=== PATIENT | female | born 1955 | race Caucasian/White ===

== ENCOUNTER 2020-06-05 08:17 | Day surgery (SDC) | payer OTHER ==
[2020-06-02 10:31] LABS: BLOOD UREA NITROGEN,BUN 15 mg/dL (7.0-18.0); CHLORIDE,CL 102 mmol/L (98-107); GLUCOSE RANDOM 119 mg/dL (74-106); POTASSIUM,K 4.2 mmol/L (3.5-5.1); SODIUM,NA 137 mmol/L (136-145)
[~2020-06-05 08:17] MED LIST: Dexamethasone 4 MG/ML 5 ML MDV ONE; Fluorescein 5 ML Vial ONE; Lidocaine 2% 5 ML SDV ONE; Midazolam 1 MG/ML 2 ML SDV ONE; Ondansetron 4 MG/2 ML SDV ONE; Propofol 200 MG/20 ML SDV ONE; Rocuronium Bromide 50 MG/5 ML Syringe ONE; fentaNYL 250 MCG/5 ML SDV ONE
[2020-06-05] MEDS ORDERED: Bupivacaine 0.25% 10 ML SDV ONE (08:58)
--- NOTE | 2020-06-05 08:58 | PCM.PREANE ---
Preanesthetic Assessment - Anesthesia/Transfusion/Family Hx Anesthesia History: Prior Anesthesia Without Reaction Family History of Anesthesia Reaction: No Transfusion History: No Prior Transfusion(s) Intubation History: Unknown - Review of Systems General: No Symptoms Pulmonary: No Symptoms Cardiovascular: No Symptoms Gastrointestinal: No Symptoms Neurological: No Symptoms Other: Reports: None - Physical Assessment Vital Signs: Last Vital Signs Temp 36.8 C 06/05/20 08:30 Pulse 82 06/05/20 08:30 Resp 16 06/05/20 08:30 BP 154/68 H 06/05/20 08:30 Pulse Ox 98 06/05/20 08:30 Height: 5 ft 3 in Weight: 79.832 kg ASA Class: 2 Mental Status: Alert & Oriented x3 Airway Class: Mallampati = 1 Dentition: Reports: Normal Dentition Thyro-Mental Finger Breadths: 3 Mouth Opening Finger Breadths: 3 ROM/Head Extension: Full Lungs: Clear to Auscultation, Normal Respiratory Effort Cardiovascular: Regular Rate, Regular Rhythm - Lab Values: Laboratory Last Values WBC 5.30 K/uL (4.0-11.0) 06/02/20 09:50 RBC 5.03 M/uL (4.30-5.90) 06/02/20 09:50 Hgb 15.0 g/dL (12.0-16.0) 06/02/20 09:50 Hct 43.0 % (36.0-46.0) 06/02/20 09:50 MCV 85.5 fL (80.0-98.0) 06/02/20 09:50 MCH 29.8 pg (27.0-32.0) 06/02/20 09:50 MCHC 34.9 g/dL (31.0-37.0) 06/02/20 09:50 RDW Std Deviation 39.4 fl (28.0-62.0) 06/02/20 09:50 RDW Coeff of Tee 13 % (11.0-15.0) 06/02/20 09:50 Plt Count 223 K/uL (150-400) 06/02/20 09:50 MPV 8.90 fL (7.40-12.00) 06/02/20 09:50 Nucleated RBC % 0.0 /100WBC 06/02/20 09:50 Nucleated RBCs # 0 K/uL 06/02/20 09:50 Sodium 137 mmol/L (136-145) 06/02/20 09:50 Potassium 4.2 mmol/L (3.5-5.1) 06/02/20 09:50 Chloride 102 mmol/L (98-107) 06/02/20 09:50 Carbon Dioxide 29.0 mmol/L (21.0-32.0) 06/02/20 09:50 BUN 15 mg/dL (7.0-18.0) 06/02/20 09:50 Creatinine 0.8 mg/dL (0.6-1.0) 06/02/20 09:50 Est Cr Clr Drug Dosing 60.31 mL/min 06/02/20 09:50 Estimated GFR (MDRD) > 60.0 ml/min 06/02/20 09:50 Glucose 119 mg/dL (74-106) H 06/02/20 09:50 Calcium 9.7 mg/dL (8.5-10.1) 06/02/20 09:50 Blood Type A POSITIVE 06/02/20 09:55 Antibody Screen NEGATIVE 06/02/20 09:55 - Allergies Allergies/Adverse Reactions: Allergies Allergy/AdvReac Type Severity Reaction Status Date / Time No Known Allergies Allergy Verified 05/31/20 09:40 - Blood Blood Available: No - Anesthesia Plan Pre-Op Medication Ordered: None - Acknowledgements Anesthesia Type Planned: General Anesthesia Pt an Appropriate Candidate for the Planned Anesthesia: Yes Alternatives and Risks of Anesthesia Discussed w Pt/Guardian: Yes Pt/Guardian Understands and Agrees with Anesthesia Plan: Yes PreAnesthesia Questionnaire - Past Health History Medical/Surgical History: Denies Medical/Surgical History HEENT History: Reports: Other (See Below) Other HEENT History: wears glasses Cardiovascular History: Reports: High Cholesterol, Hypertension Respiratory History: Reports: None Gastrointestinal History: Reports: None Genitourinary History: Reports: None SPREAD CUTTER History: Reports: , Spontaneous Musculoskeletal History: Reports: Arthritis Neurological History: Reports: None Psychiatric History: Reports: None Endocrine/Metabolic History: Reports: Obesity/BMI 30+ (BMI 31.2), Vitamin D Deficiency Hematologic History: Reports: Anemia Immunologic History: Reports: None Oncologic (Cancer) History: Reports: Basal Cell Carcinoma Other Oncologic History: basal cell skin cancer removed from nose Dermatologic History: Reports: None - Past Surgical History Head Surgeries/Procedures: Reports: None HEENT Surgical History: Reports: None Cardiovascular Surgical History: Reports: None Respiratory Surgical History: Reports: None GI Surgical History: Reports: Appendectomy Female Surgical History: Reports: None Endocrine Surgical History: Reports: None Neurological Surgical History: Reports: None Musculoskeletal Surgical History: Reports: None Oncologic Surgical History: Reports: None Dermatological Surgical History: Reports: Skin Biopsy - SUBSTANCE USE Smoking Status *Q: Never Smoker Recreational Drug Use History: No - HOME MEDS Home Medications: Home Meds Cyanocobalamin (Vitamin B12) [Vitamin B12] 1 injection IM ASDIRECTED 05/31/20 [History] Ergocalciferol (Vitamin D2) [Vitamin D2] 50,000 units PO WEEKLY 05/31/20 [History] lisinopriL [Lisinopril] 10 mg PO BEDTIME 05/31/20 [History] - CURRENT (IN HOUSE) MEDS Current Meds: Current Medications Discontinued Medications Dexamethasone (Dexamethasone) Confirm Administered Dose 20 mg .ROUTE .STK-MED ONE Stop: 06/05/20 07:00 Fentanyl (Sublimaze) Confirm Administered Dose 250 mcg .ROUTE .STK-MED ONE Stop: 06/05/20 06:59 Fluorescein Sodium (Ak-Fluor) Confirm Administered Dose 5 ml .ROUTE .STK-MED ONE Stop: 06/05/20 07:30 Lidocaine (Xylocaine-Mpf 2%) Confirm Administered Dose 5 ml .ROUTE .STK-MED ONE Stop: 06/05/20 07:00 Midazolam HCl (Versed 1 Mg/Ml) Confirm Administered Dose 2 mg .ROUTE .STK-MED ONE Stop: 06/05/20 06:59 Ondansetron HCl (Zofran) Confirm Administered Dose 4 mg .ROUTE .STK-MED ONE Stop: 06/05/20 07:00 Propofol (Diprivan 20 Ml) Confirm Administered Dose 200 mg .ROUTE .STK-MED ONE Stop: 06/05/20 06:59 Rocuronium [place] (Rocuronium [place]) Confirm Administered Dose 50 mg .ROUTE .STK-MED ONE Stop: 06/05/20 07:00
[2020-06-05] MEDS ORDERED: Bupivacaine 0.25%/EPINEPHrine 1:200,000 10 ML SDV ONE (08:59)
[2020-06-05] MEDS ORDERED: Bupivacaine 0.5%/EPINEPHrine 1:200,000 10 ML SDV ONE (08:59)
[2020-06-05] MEDS ORDERED: Bupivacaine 0.5% 10 ML SDV ONE (08:59)
[2020-06-05] MEDS ORDERED: Lactated Ringers 1,000 ML IV SCH (09:15)
[2020-06-05] MEDS ORDERED: Propofol 200 MG/20 ML SDV ONE ×2 (10:00→10:48)
[2020-06-05] MEDS ORDERED: ceFAZolin/Dextrose,Iso-Osmotic 2 GM/50 ML Duplex Bag IV ONE (10:00)
[2020-06-05] MEDS ORDERED: HYDROmorphone 2 MG/ML Syringe ONE (10:27)
[2020-06-05] MEDS ORDERED: Glycopyrrolate 0.2 MG/ML SDV ONE ×2 (10:42→10:43)
[2020-06-05] MEDS ORDERED: Ketorolac 30 MG/ML SDV ONE (10:43)
[2020-06-05] MEDS ORDERED: Furosemide 40 MG/4 ML VIAL ONE (10:46)
[2020-06-05] MEDS ORDERED: Ondansetron 4 MG/2 ML SDV IVPUSH PRN (11:50)
[2020-06-05] MEDS ORDERED: Ketorolac 30 MG/ML SDV IVPUSH ONE (11:50)
[2020-06-05] MEDS ORDERED: Acetaminophen/oxyCODONE 325-5 MG Tab PO PRN ×2 (11:50)
[2020-06-05] MEDS ORDERED: Promethazine 25 MG/ML SDV IM PRN (11:50)
[2020-06-05] MEDS ORDERED: Morphine 4 MG/ML Syringe IVPUSH PRN (11:50)
--- NOTE | 2020-06-05 12:02 | PCM.OPNOTE ---
- General Post-Op/Procedure Note Date of Surgery/Procedure: 06/05/20 Operative Procedure(s): TVH/culdoplasty/A&P repair/cystoscopy Findings: 3rd degree uterine prolapse with cystocele. 2nd degree rectocele Pre Op Diagnosis: Incomplete uterovaginal prolapse, symptomatic Post-Op Diagnosis: Same Anesthesia Technique: General ET Tube Primary Surgeon: Audrey Gaviria Dna Sequencing Associate: Virgil Cordero Pathology: uterus, vaginal mucosa Fluid Replacement, Intraop: 1,500 EBL in mLs: 250 Complications: none known Condition: Stable Free Text/Narrative:: Dictation [id number]
[2020-06-05] MEDS ORDERED: fentaNYL 50 MCG/ML SDV IVPUSH PRN (12:25)
[2020-06-05] MEDS ORDERED: fentaNYL 100 MCG/2 ML SDV ONE (12:28)
--- NOTE | 2020-06-05 12:47 | PCM.POSTAN ---
POST ANESTHESIA ASSESSMENT - MENTAL STATUS Mental Status: Alert, Oriented - VITAL SIGNS Vital Signs: Last Vital Signs Temp 36.5 C 06/05/20 11:47 Pulse 63 06/05/20 12:39 Resp 9 L 06/05/20 12:39 BP 134/64 06/05/20 12:39 Pulse Ox 100 06/05/20 12:39 - RESPIRATORY Respiratory Status: Respiratory Rate WNL, Airway Patent, O2 Saturation Stable - CARDIOVASCULAR CV Status: Pulse Rate WNL, Blood Pressure Stable - GASTROINTESTINAL GI Status: No Symptoms - PAIN Pain Score: 0 - POST OP HYDRATION Hydration Status: Adequate & Stable
--- NOTE | 2020-06-05 16:02 | OR ---
SURGEON: Audrey Gaviria M.D. DATE OF PROCEDURE: 06/05/2020 PREOPERATIVE DIAGNOSIS: Incomplete uterovaginal prolapse, symptomatic. POSTOPERATIVE DIAGNOSIS: Incomplete uterovaginal prolapse, symptomatic. PROCEDURES: Total vaginal hysterectomy, anterior and posterior colporrhaphy, culdoplasty, and cystoscopy. PRIMARY SURGEON: Audrey Gaviria MD RD SCIENTIST: Virgil Cordero MD ANESTHESIA: General endotracheal anesthesia. FLUIDS: 1500 mL of crystalloid. ESTIMATED BLOOD LOSS: 250 mL. COMPLICATIONS: None known. FINDINGS: Third-degree uterine prolapse with cystocele and second-degree rectocele. DISPOSITION: The patient to PACU, stable. Specimen to pathology. PROCEDURE DETAILS: Alma is a 64-year-old postmenopausal female who has ongoing symptomatology related to pelvic organ prolapse. At this time, she would like to proceed with surgical intervention. Risks of procedure have been discussed. Proper consent obtained. The patient was taken to the operating room where she underwent general endotracheal anesthesia, placed in modified dorsal lithotomy position, was prepped and draped in usual sterile fashion. SCDs to lower extremities. Titus to gravity. Received Ancef prophylactically. Time-out was performed. A weighted speculum was placed in the vagina. Anterior Nithin placed. Cervix was visualized and grasped with Klaudia clamp. The cervix was tented downward and was circumscribed using Bovie cautery. Anterior and posterior overlying mucosa was dissected away from underlying peritoneum. Posterior peritoneum was tented downward, entered sharply. Longer speculum was introduced, replacing the shorter. Anteriorly, peritoneum was tented upward and entered sharply with Metzenbaum scissors. A Williams was placed to mobilize the bladder away from the operative field. Kelvin clamps were utilized to secure pedicles. Uterosacral ligaments on either side were able to be secured, transected, and suture ligated with 2-0 Vicryl. Remainder of suture will be 2-0 Vicryl unless otherwise specified. Remainder of pedicle including the base of the broad ligament, cardinal ligament was able to be secured, transected on either side, and suture ligated. Medium broad ligament with round ligament was doubly transected and suture ligated followed by the utero tubo-ovarian pedicle on either side, which were then transected, secured with a tie and a pass followed by suture tie. Uterus handed off to fishing tool technician oil well to be sent to pathology. The pedicles were inspected, found to be hemostatic. Tubo-ovarian pedicles were closely inspected, found to be hemostatic, sutures trimmed. Attention was now turned to performing anterior colporrhaphy. In the midline on either side of the vaginal cuffs along the vaginal cuff, it was grasped with an Allis clamp. Hydrodissection was now performed. The sagittal midline anterior vaginal mucosal incision was created and the edges of the incisional site were grasped with Allis clamps in sterile fashion. The overlying mucosa was dissected away from underlying muscularis tissue until a stronger lateral tissue was able to be palpated. The stronger lateral tissue was now replicated using 2-0 Vicryl with inverted mattress suture technique in serial fashion reducing the defect nicely. The excess vaginal mucosa was now trimmed and replicated using 0 Vicryl in continuous running locked fashion. Attention was now turned to performing culdoplasty. The lower pedicles of the hysterectomy were now inspected, found to be hemostatic. The uterosacral ligament on either side was plicated to the vaginal mucosa. The left uterosacral ligament suture was able to be utilized to reef along the posterior peritoneum and then through the right uterosacral ligament pedicle. In similar fashion, this was performed with the patient's right uterosacral pedicle suture, except mobilized the suture just cephalic to the previous one. These sutures were now gently tied down helping to close off the base along the posterior peritoneum. The remainder of the vaginal cuff was now closed using 0 Vicryl in continuous running locked fashion. Titus bulb was now desufflated, and using normal saline as distention media, cystoscopy was performed. The patient had IV fluorescein with Lasix delivered via IV. The dome of the bladder was able to be visualized followed by the trigone. The left ureteral orifice followed by the right ureteral orifice was able to be visualized. Fluorescein-dyed urine was seen streaming from both of them helping to ensure ureteral patency. Therefore, the bladder was now drained. Cystoscope was removed. Titus catheter was replaced. Attention was turned to performing the posterior repair, perineorrhaphy. At the level of the posterior introitus, at the 5 and 7 o'clock positions, Allis clamps were placed. A V-wedge section of tissue along the perineum was now resected. Hydrodissection was mobilized along the posterior mucosa and a midline sagittal vaginal mucosal incision was created. The edges of the incision were grasped with Allis clamps in serial fashion. The overlying mucosa was dissected sharply and bluntly away from underlying muscularis tissue until stronger lateral muscularis tissue was able to be identified. This was reapproximated using 2-0 Vicryl with inverted mattress suture technique, which reduced the defect nicely. Excess vaginal mucosa was now trimmed. The vaginal mucosa was reapproximated using 2-0 Vicryl in continuous running locked fashion. The perineorrhaphy was now repaired in usual fashion using a 3-0 Vicryl, a transition suture was placed. The subcutaneous tissue was replicated followed by subcuticular sutures to reapproximate the skin of the perineum. There was an area of oozing along the posterior repair, midline region. This was reapproximated with a figure-of- eight suture. Hemostasis thereafter evident. Defects were reduced nicely. Vaginal packing was placed. Titus catheter had been replaced. The patient will go to PACU in stable condition. Sponge, instrument, and needle counts correct x2. Specimen to pathology. JOSUE / CONRADO /[id number]
[2020-06-05] MEDS: Ketorolac 30 MG/ML SDV IVPUSH PRN (18:52)
[2020-06-05] MEDS ORDERED: Docusate Sodium 100 MG Cap PO SCH (21:00)
[2020-06-06] MEDS: Ketorolac 30 MG/ML SDV IVPUSH PRN (02:13)
[2020-06-06 06:21] LABS: BLOOD UREA NITROGEN,BUN 15 mg/dL (7.0-18.0); CARBON DIOXIDE,CO2 24.4 mmol/L (21.0-32.0); CHLORIDE,CL 100 mmol/L (98-107); GLUCOSE RANDOM 138 mg/dL (74-106); POTASSIUM,K 3.8 mmol/L (3.5-5.1); SODIUM,NA 132 mmol/L (136-145)
--- NOTE | 2020-06-06 07:24 | PCM48HPAN ---
Post Anesthesia Note - EVALUATION WITHIN 48HRS OF ANESTHETIC Vital Signs in Normal Range: Yes Patient Participated in Evaluation: Yes Respiratory Function Stable: Yes Airway Patent: Yes Cardiovascular Function Stable: Yes Hydration Status Stable: Yes Pain Control Satisfactory: Yes Nausea and Vomiting Control Satisfactory: Yes Mental Status Recovered: Yes Vital Signs: Last Vital Signs Temp 37.0 C 06/06/20 05:43 Pulse 88 06/06/20 05:43 Resp 14 06/06/20 05:43 BP 147/74 H 06/06/20 05:43 Pulse Ox 94 L 06/06/20 05:43 - COMMENTS/OBSERVATIONS Free Text/Narrative:: Doing well. Pain minimal. No problems post.
[2020-06-06 07:47] VITALS: BP 137/79; PULSE 72
--- NOTE | 2020-06-06 10:16 | PCM.SURGPN ---
- General Info Date of Service: 06/06/20 POD#: 1 Functional Status: Reports: Pain Controlled, Tolerating Diet, Ambulating, Urinating - Review of Systems General: Denies: Fever, Weakness, Fatigue Pulmonary: Denies: Shortness of Breath Cardiovascular: Denies: Chest Pain, Palpitations, Lightheadedness Gastrointestinal: Denies: Abdominal Pain (just some mild cramping along low abdomen/back), Nausea, Vomiting Genitourinary: Denies: Flank Pain Musculoskeletal: Reports: No Symptoms Skin: Reports: No Symptoms Neurological: Reports: No Symptoms Psychiatric: Reports: No Symptoms - Patient Data Vitals - Most Recent: Last Vital Signs Temp 36.5 C 06/06/20 07:40 Pulse 72 06/06/20 07:40 Resp 15 06/06/20 07:40 BP 137/79 06/06/20 07:40 Pulse Ox 96 06/06/20 07:40 Weight - Most Recent: 79.832 kg I&O - Last 24 Hours: Intake & Output 06/05/20 06/06/20 06/06/20 22:59 06:59 14:59 Output Total 185 2650 Balance -185 -2650 Lab Results Last 24 Hrs: Laboratory Results - last 24 hr 06/06/20 06/06/20 Range/Units 05:48 05:48 WBC 10.36 (4.0-11.0) K/uL RBC 3.85 L (4.30-5.90) M/uL Hgb 11.3 L (12.0-16.0) g/dL Hct 32.3 L (36.0-46.0) % MCV 83.9 (80.0-98.0) fL MCH 29.4 (27.0-32.0) pg MCHC 35.0 (31.0-37.0) g/dL RDW Std Deviation 38.0 (28.0-62.0) fl RDW Coeff of Tee 12 (11.0-15.0) % Plt Count 204 (150-400) K/uL MPV 8.90 (7.40-12.00) fL Neut % (Auto) 80.1 H (48.0-80.0) % Lymph % (Auto) 13.7 L (16.0-40.0) % [place] % (Auto) 6.0 (0.0-15.0) % Eos % (Auto) 0.2 (0.0-7.0) % Baso % (Auto) 0.0 (0.0-1.5) % Neut # (Auto) 8.3 H (1.4-5.7) K/uL Lymph # (Auto) 1.4 (0.6-2.4) K/uL [place] # (Auto) 0.6 (0.0-0.8) K/uL Eos # (Auto) 0.0 (0.0-0.7) K/uL Baso # (Auto) 0.0 (0.0-0.1) K/uL Nucleated RBC % 0.0 /100WBC Nucleated RBCs # 0 K/uL Sodium 132 L (136-145) mmol/L Potassium 3.8 (3.5-5.1) mmol/L Chloride 100 (98-107) mmol/L Carbon Dioxide 24.4 (21.0-32.0) mmol/L BUN 15 (7.0-18.0) mg/dL Creatinine 0.7 (0.6-1.0) mg/dL Est Cr Clr Drug Dosing 68.93 mL/min Estimated GFR (MDRD) > 60.0 ml/min Glucose 138 H (74-106) mg/dL Calcium 8.3 L (8.5-10.1) mg/dL Med Orders - Current: Current Medications Docusate Sodium (Colace) 100 mg PO BID [facility] Fentanyl (Fentanyl) 50 mcg IVPUSH SEECOMMENT PRN PRN Reason: Pain (moderate 4-6) Last Admin: 06/05/20 12:38 Dose: 50 mcg Documented by: Lactated Ringer's (Ringers, Lactated) 1,000 mls @ 100 mls/hr IV ASDIRECTED [facility] Last Admin: 06/05/20 09:28 Dose: 100 mls/hr Documented by: Ketorolac Tromethamine (Toradol) 30 mg IVPUSH Q6H PRN PRN Reason: Pain (severe 7-10) Stop: 06/10/20 11:50 Last Admin: 06/06/20 02:13 Dose: 30 mg Documented by: Morphine Sulfate (Morphine) 4 mg IVPUSH Q2H PRN PRN Reason: Pain (severe 7-10) Ondansetron HCl (Zofran) 4 mg IVPUSH Q6H PRN PRN Reason: Nausea/Vomiting Oxycodone/Acetaminophen (Percocet 325-5 Mg) 1 tab PO Q4H PRN PRN Reason: Pain (moderate 4-6) Last Admin: 06/05/20 23:29 Dose: 1 tab Documented by: Oxycodone/Acetaminophen (Percocet 325-5 Mg) 2 tab PO Q4H PRN PRN Reason: Pain (moderate 4-6) Promethazine HCl (Phenergan) 25 mg IM Q6H PRN PRN Reason: Nausea/Vomiting Discontinued Medications Bupivacaine HCl (Sensorcaine-Mpf 0.25%) Confirm Administered Dose 10 ml .ROUTE .STK-MED ONE Stop: 06/05/20 08:59 Bupivacaine HCl (Sensorcaine-Mpf 0.5%) Confirm Administered Dose 10 ml .ROUTE .STK-MED ONE Stop: 06/05/20 09:00 Bupivacaine HCl/Epinephrine Bitart (Marcaine 0.25%/Epinephrine 1:200,000) Confirm Administered Dose 10 ml .ROUTE .STK-MED ONE Stop: 06/05/20 09:00 Bupivacaine HCl/Epinephrine Bitart ([place] 0.5%/Epinephrine 1:200,000) Confirm Administered Dose 10 ml .ROUTE .STK-MED ONE Stop: 06/05/20 09:00 Cefazolin Sodium/Dextrose (Ancef) Confirm Administered Dose 2 gm IV .STK-MED ONE Stop: 06/05/20 10:01 Dexamethasone (Dexamethasone) Confirm Administered Dose 20 mg .ROUTE .STK-MED ONE Stop: 06/05/20 07:00 Fentanyl (Sublimaze) Confirm Administered Dose 250 mcg .ROUTE .STK-MED ONE Stop: 06/05/20 06:59 Fentanyl (Sublimaze) Confirm Administered Dose 100 mcg .ROUTE .STK-MED ONE Stop: 06/05/20 12:29 Last Admin: 06/05/20 12:30 Dose: 50 mcg Documented by: Fluorescein Sodium (Ak-Fluor) Confirm Administered Dose 5 ml .ROUTE .STK-MED ONE Stop: 06/05/20 07:30 Furosemide (Lasix) Confirm Administered Dose 40 mg .ROUTE .STK-MED ONE Stop: 06/05/20 10:47 Glycopyrrolate (Robinul) Confirm Administered Dose 0.4 mg .ROUTE .STK-MED ONE Stop: 06/05/20 10:43 Glycopyrrolate (Robinul) Confirm Administered Dose 0.2 mg .ROUTE .STK-MED ONE Stop: 06/05/20 10:44 Hydromorphone HCl (Dilaudid) Confirm Administered Dose 2 mg .ROUTE .STK-MED ONE Stop: 06/05/20 10:28 Ketorolac Tromethamine (Toradol) Confirm Administered Dose 30 mg .ROUTE .STK-MED ONE Stop: 06/05/20 10:44 Ketorolac Tromethamine (Toradol) 30 mg IVPUSH ONETIME ONE Stop: 06/05/20 11:51 Last Admin: 06/05/20 11:35 Dose: Not Given Documented by: Lidocaine (Xylocaine-Mpf 2%) Confirm Administered Dose 5 ml .ROUTE .STK-MED ONE Stop: 06/05/20 07:00 Midazolam HCl (Versed 1 Mg/Ml) Confirm Administered Dose 2 mg .ROUTE .STK-MED ONE Stop: 06/05/20 06:59 Ondansetron HCl (Zofran) Confirm Administered Dose 4 mg .ROUTE .STK-MED ONE Stop: 06/05/20 07:00 Propofol (Diprivan 20 Ml) Confirm Administered Dose 200 mg .ROUTE .STK-MED ONE Stop: 06/05/20 06:59 Propofol (Diprivan 20 Ml) Confirm Administered Dose 200 mg .ROUTE .STK-MED ONE Stop: 06/05/20 10:01 Propofol (Diprivan 20 Ml) Confirm Administered Dose 200 mg .ROUTE .STK-MED ONE Stop: 06/05/20 10:49 Rocuronium [place] (Rocuronium [place]) Confirm Administered Dose 50 mg .ROUTE .STK-MED ONE Stop: 06/05/20 07:00 - Exam General: Alert, Oriented Lungs: Normal Respiratory Effort Cardiovascular: Regular Rate, Regular Rhythm GI/Abdominal Exam: Normal Bowel Sounds, Soft Extremities: Pedal Edema (trace). No: Yudi's Sign Skin: Warm, Dry, Intact Neurological: No New Focal Deficit Psy/Mental Status: Alert, Normal Affect, Normal Mood Sepsis Event Note - Evaluation Sepsis Screening Result: No Definite Risk - Focused Exam Vital Signs: Vital Signs Temp Pulse Resp BP Pulse Ox 06/06/20 07:40 36.5 C 72 15 137/79 96 06/06/20 05:43 37.0 C 88 14 147/74 H 94 L 06/06/20 00:00 36.8 C 78 16 148/77 H 95 Date Exam was Performed: 06/06/20 Time Exam was Performed: 10:12 - Problem List & Annotations (1) Incomplete uterovaginal prolapse SNOMED Code(s): 569026043 Code(s): N81.2 - INCOMPLETE UTEROVAGINAL PROLAPSE Status: Acute Current Visit: Yes - Problem List Review Problem List Initiated/Reviewed/Updated: Yes - My Orders Last 24 Hours: Active Orders 24 hr Category Date Time Status Admission Status [Patient Status] [ADT] Routine ADT 06/05/20 21:43 Active Antiembolic Devices [RC] PER UNIT ROUTINE Care 06/05/20 11:51 Active Notify Provider Intake and Out [RC] ASDIRECTED Care 06/05/20 11:50 Active Notify Provider Vital Signs [RC] ASDIRECTED Care 06/05/20 11:50 Active Oxygen Therapy [RC] ASDIRECTED Care 06/05/20 11:50 Active RT Incentive Spirometry [RC] Q2HWA Care 06/05/20 11:50 Active Ready for Discharge [RC] PER UNIT ROUTINE Care 06/06/20 10:12 Ordered Up With Assistance [RC] PER UNIT ROUTINE Care 06/05/20 11:50 Active Up ad Lorrie [RC] PER UNIT ROUTINE Care 06/05/20 11:50 Active Urinary Catheter Removal [RC] Per Unit Routine Care 06/05/20 11:50 Active Vital Signs [RC] PER UNIT ROUTINE Care 06/05/20 11:50 Active Regular Diet [DIET] Diet 06/05/20 Lunch Active Acetaminophen/oxyCODONE [Percocet 325-5 MG] Med 06/05/20 11:50 Active 1 tab PO Q4H PRN Acetaminophen/oxyCODONE [Percocet 325-5 MG] Med 06/05/20 11:50 Active 2 tab PO Q4H PRN Docusate Sodium [Colace] Med 06/05/20 21:00 Active 100 mg PO BID Ketorolac [Toradol] Med 06/05/20 11:50 Active 30 mg IVPUSH Q6H PRN Lactated Ringers [Ringers, Lactated] 1,000 ml Med 06/05/20 09:15 Active IV ASDIRECTED Morphine Med 06/05/20 11:50 Active 4 mg IVPUSH Q2H PRN Ondansetron [Zofran] Med 06/05/20 11:50 Active 4 mg IVPUSH Q6H PRN Promethazine [Phenergan] Med 06/05/20 11:50 Active 25 mg IM Q6H PRN fentaNYL Med 06/05/20 12:25 Active 50 mcg IVPUSH SEECOMMENT PRN Peripheral IV Discontinue [OM.PC] Routine Oth 06/05/20 11:50 Ordered Remove Vaginal Packing [OM.PC] Per Unit Routine Oth 06/05/20 11:51 Ordered Sequential Compression Device [OM.PC] Per Unit Routine Oth 06/05/20 11:50 Ordered Resuscitation Status Routine Resus Stat 06/05/20 11:50 Ordered Medication Orders Docusate Sodium (Colace) 100 mg PO BID RONN[facility] Fentanyl (Fentanyl) 50 mcg IVPUSH SEECOMMENT PRN PRN Reason: Pain (moderate 4-6) Last Admin: 06/05/20 12:38 Dose: 50 mcg Documented by: JEROME Lactated Ringer's (Ringers, Lactated) 1,000 mls @ 100 mls/hr IV ASDIRECTED RONNIE Last Admin: 06/05/20 09:28 Dose: 100 mls/hr Documented by: DERECK Ketorolac Tromethamine (Toradol) 30 mg IVPUSH Q6H PRN PRN Reason: Pain (severe 7-10) Stop: 06/10/20 11:50 Last Admin: 06/06/20 02:13 Dose: 30 mg Documented by: Admin: 06/05/20 18:52 Dose: 30 mg Documented by: PAKRER Morphine Sulfate (Morphine) 4 mg IVPUSH Q2H PRN PRN Reason: Pain (severe 7-10) Ondansetron HCl (Zofran) 4 mg IVPUSH Q6H PRN PRN Reason: Nausea/Vomiting Oxycodone/Acetaminophen (Percocet 325-5 Mg) 1 tab PO Q4H PRN PRN Reason: Pain (moderate 4-6) Last Admin: 06/05/20 23:29 Dose: 1 tab Documented by: KEISHA Oxycodone/Acetaminophen (Percocet 325-5 Mg) 2 tab PO Q4H PRN PRN Reason: Pain (moderate 4-6) Promethazine HCl (Phenergan) 25 mg IM Q6H PRN PRN Reason: Nausea/Vomiting - Assessment Assessment (Free Text/Narrative):: POD 1 status post /culdoplasty/A&P repair/cystoscopy - Plan Plan (Free Text/Narrative):: Labs are reassuring. VS are stable overall. Reviewed intraoperative findings and procedure. Patient feels ready to go home. Vaginal packing has been removed. Discharge to home. Follow up at [facility] 2 and 6 week. Infection and bleeding warnings reivewed. Discharge instructions reviewed. Cautioned on lifting precautions of not over 10 pounds. Rx for percocet and colace sent into [facility]. She is to use motrin initially. Patient agrees to plan of care and will call with any concerns or questions.
== END 2020-06-06 10:59 | disposition home or self-care (01) ==
LOC: MW.SDS 08:17 → MERGE 09:30 → MW.OB 13:23 → MW.SDS 06-06 10:59
PROVIDERS: ATTEND Obstetrics & Gynecology
DX: N81.2 Incomplete uterovaginal prolapse (principal); I10 Essential (primary) hypertension; E78.00 Pure hypercholesterolemia, unspecified; E66.9 Obesity, unspecified; M19.90 Unspecified osteoarthritis, unspecified site; Z79.899 Other long term (current) drug therapy; Z90.89 Acquired absence of other organs; Z68.31 Body mass index [BMI] 31.0-31.9, adult
CPT/HCPCS: 00944; 36415; 80048; 85025; 85027; 86850; 86900; 86901; 88305; 88307; A9270-GY; J0690; J1100; J1170; J1885; J1940; J2001; J2250; J2405; J2704; J3010; J3490; J7120